=== PATIENT | female | born 1990 | race Caucasian/White ===

== ENCOUNTER 2016-07-27 02:45 | Emergency (ER) | payer BC ==
[2016-07-27 03:06] VITALS: RESP 18
[2016-07-27] MEDS ORDERED: predniSONE 20 MG TAB PO STA (03:20)
[2016-07-27] MEDS ORDERED: ALBUTEROL NEBULIZED 2.5 MG/3 ML INHALATION STA (03:20)
--- NOTE | 2016-07-27 03:24 | ED ---
URI HPI - General Chief Complaint: Upper Respiratory Infection Stated Complaint: Cough/infection Time Seen by Provider: 07/27/16 03:12 Source: patient Mode of arrival: ambulatory Limitations: no limitations - History of Present Illness Initial Comments: This patient is a 25-year-old woman who presents to be evaluated for cough. The patient states that her symptoms started between 3 and 4 weeks ago, with congestion and cough. She states she was seen by her clinic provider, and diagnosed with upper respiratory infection and given a course of medication. She was feeling better for a period of time but then over the past week or so has had worsening of the cough. Tonight she had a cough with a little bit of brownish sputum and she felt she should have this evaluated. The patient states she is also a little bit short of breath. When questioned she states there may be a little bit of wheezing going on. She has no history of asthma. Patient denies fever or chills. She is not really having chest pains other than a little bit of burning with the cough. No leg pain or swelling. MD Complaint: cough Onset/Timin -: week(s) Severity: moderate Quality: burning Consistency: constant Improves With: nothing Worsens With: nothing Associated Symptoms: denies other symptoms - Related Data Previous Rx's Medication Instructions Recorded Albuterol Inhaler [Ventolin Hfa 1 - 2 puff INHALATION Q6HR PRN #1 07/27/16 Inhaler] inhaler predniSONE 60 mg PO DAILY #30 tab 07/27/16 Allergies Allergy/AdvReac Type Severity Reaction Status Date / Time citalopram Allergy Dyspnea Verified 07/27/16 03:06 Review of Systems ROS Statement: Those systems with pertinent positive or pertinent negative responses have been documented in the HPI. ROS Other: All systems not noted in ROS Statement are negative. Constitutional: Denies: fever, chills, weakness ENT: Denies: throat pain, congestion Respiratory: Reports: cough, wheezes. Denies: dyspnea, hemoptysis Cardiovascular: Denies: chest pain, palpitations, edema Gastrointestinal: Denies: abdominal pain, vomiting Skin: Denies: rash Neurological: Denies: headache Past Medical History Past Medical History: No Reported History History of Any Multi-Drug Resistant Organisms: None Reported Past Surgical History: Cholecystectomy Additional Past Surgical History / Comment(s): Ganglion cyst removal; mole removal Past Psychological History: No Psychological Hx Reported Smoking Status: Never smoker Past Alcohol Use History: Occasional Past Drug Use History: None Reported General Exam Limitations: no limitations General appearance: alert, in no apparent distress ENT exam: Present: mucous membranes moist, other (Mild cobblestoning of the pharynx) Neck exam: Present: normal inspection, full ROM, lymphadenopathy. Absent: meningismus Respiratory exam: Present: normal lung sounds bilaterally, wheezes. Absent: respiratory distress, rales, rhonchi, stridor Cardiovascular Exam: Present: regular rate, normal rhythm, normal heart sounds. Absent: systolic murmur, diastolic murmur, rubs, gallop GI/Abdominal exam: Present: soft. Absent: tenderness, guarding, rebound Extremities exam: Present: normal inspection. Absent: pedal edema, calf tenderness Skin exam: Present: warm, dry, intact, normal color. Absent: rash Course Vital Signs 07/27/16 07/27/16 07/27/16 03:03 03:35 03:44 Temperature 97.3 F L Pulse Rate 85 84 84 Respiratory 18 Rate Blood Pressure 117/83 O2 Sat by Pulse 98 Oximetry Disposition Clinical Impression: Bronchitis Disposition: HOME SELF-CARE Condition: Good Instructions: Acute Bronchitis (ED), Bronchospasm (ED), How to Use a Nebulizer (ED) Prescriptions: Albuterol Inhaler [Ventolin Hfa Inhaler] 1 - 2 puff INHALATION Q6HR PRN #1 inhaler PRN Reason: Wheezing predniSONE 60 mg PO DAILY #30 tab Referrals: Christiano Ramirez MD [Primary Care Provider] - 1-2 days
--- NOTE | 2016-07-27 04:37 | XR ---
EXAM: XR Chest, 2 Views. CLINICAL HISTORY: Reason: cough TECHNIQUE: Frontal and lateral views of the chest. COMPARISON: No relevant prior studies available. FINDINGS: Lungs: Unremarkable. No consolidation. Pleural spaces: Unremarkable. No pneumothorax. Heart: Unremarkable. No cardiomegaly. Mediastinum: Unremarkable. Bones: Unremarkable. No acute fracture. IMPRESSION: Normal chest.
[2016-07-27 04:54] VITALS: BP 116/71; PULSE 82; TEMP 96.8
== END 2016-07-27 04:54 | disposition home or self-care (01) ==
LOC: EC 02:45
DX: J40 Bronchitis, not specified as acute or chronic (principal); Z88.8 Allergy status to other drugs, medicaments and biological substances
CPT/HCPCS: 94640; 71020; 99283; J7512

== ENCOUNTER 2017-02-18 16:46 | Outpatient (CLI) | payer BC, OTHER ==
[2017-02-18 17:25] LABS: Glucose,Whole Blood 108 mg/dL (75-99)
[2017-02-18 17:36] VITALS: BP 131/67; PULSE 93; RESP 16; TEMP 98
--- NOTE | 2017-03-23 13:48 | P.MSEPDOC ---
Presenting Problems - Arrival Data Date of Arrival on Unit: 02/18/17 Time of Arrival on Unit: 16:49 Mode of Transport: Wheelchair - Complaint OB-Reason for Admission/Chief Complaint: Decreased Movement Medical History - Information : 1 Para: 0 Term: 0 : 0 Abortions: Spontaneous or Elective: 0 Number of Living Children: 0 - Gestational Age Gestational Age by DAISY (wks/days): 31 Weeks and 1 Days Review of Systems - Review of Systems Constitutional: No problems Breast: No problems ENT: No problems Cardiovascular: No problems Respiratory: No problems Gastrointestinal: No problems Genitourinary: No problems Musculoskeletal: No problems Neurological: Dizziness Skin: No problems Comment: earlier today, not at present time Vital Signs - Temperature Temperature: 98.0 F Temperature Source: Oral - Pulse Left Sitting Brachial Pulse Rate: 93 Pulse Assessment Method: Automatic Cuff - Respirations Respiratory Rate: 16 Oxygen Delivery Method: Room Air - Blood Pressure Left Arm Sitting Blood Pressure: 131/67 Blood Pressure Mean: 88 Blood Pressure Source: Automatic Cuff Medical Screen Scoring (Pre) - Cervical Exam Dilation: Exam Deferred Effacement: Exam Deferred - Uterine Contractions Frequency: N/A Duration: N/A Intensity: N/A - Maternal Vital Signs Maternal Temperature: N/A Maternal Blood Pressure: N/A Signs of Preeclampsia: N/A Maternal Respirations: N/A - Maternal Trauma Maternal Trauma: N/A - Assessment Baseline FHR: 130 Heart Rate - NICHD Category: Category I (Normal) = 0 NST: Reactive Position: N/A Station: N/A - Total Score Total Score (Pre): 0 - Level of Risk Level of Risk: N/A Physician Notification (Pre) - Physician Notified Physician Notified Date: 02/18/17 Physician Notified Time: 17:20 Spoke With: dr gabriel New Order Received: Yes - Notification Comment Comment: obtain fingerstick BG, if normal dc pt home Disposition - Disposition OB Disposition: Discharge to home Discharge Date: 02/18/17 Discharge Time: 17:24 I agree with the RN Medical Screening Exam: Yes Risk & Benefit of care provided described in d/c instruction: Yes Diagnosis: DECREASED MOVEMENTS, THIRD TRIMESTER, FETUS 1
== END 2017-02-18 17:24 | disposition home or self-care (01) ==
LOC: FBPOP 16:46
PROVIDERS: ATTEND Obstetrics & Gynecology
DX: O36.8131 Decreased fetal movements, third trimester, fetus 1 (principal); Z3A.31 31 weeks gestation of pregnancy
CPT/HCPCS: 59025; 99213

== ENCOUNTER 2017-03-01 16:17 | Outpatient (CLI) | payer BC, OTHER ==
[2017-03-01 16:52] LABS: Appearance,Urine Cloudy (Clear); Bacteria,Urine Moderate /hpf; Bilirubin,Urine Negative (Negative); Blood,Urine Negative (Negative); Calcium Oxalate Crystals,Urine Rare /hpf; Color,Urine Yellow; Glucose,Urine (UA) Negative (Negative); Ketones,Urine Negative (Negative); Leukocyte Esterase,Urine Negative (Negative); Mucus,Urine Rare /hpf; Nitrite,Urine Negative (Negative); PH, Urine 7.5 (5.0-8.0); Protein,Urine Negative (Negative); RBC,Urine 1 /hpf (0-5); Specific Gravity,Urine 1.008 (1.001-1.035); Squamous Epithelial Cell,Urine 5 /hpf (0-4); Urobilinogen,Urine <2.0 mg/dL (<2.0); WBC,Urine 2 /hpf (0-5)
[2017-03-01 17:05] VITALS: BP 123/74; PULSE 98; RESP 16; TEMP 98
[2017-03-01] MEDS ORDERED: ACETAMINOPHEN IV (For NPO) 1,000 MG in EMPTY BAG 1 BAG IVPB STA (17:14)
[2017-03-01] MEDS: LACTATED RINGERS 1,000 ML IV SCH ×3 (17:30→18:57)
[2017-03-01 17:41] LABS: Basophils % (A) 0 %; Eosinophils # (A) 0.1 k/uL (0-0.7); Eosinophils % (A) 2 %; HCT 32.4 % (34.0-46.0); HGB 10.8 gm/dL (11.4-16.0); Lymphocytes # (A) 1.3 k/uL (1.0-4.8); Lymphocytes % (A) 13 %; MCH 28.1 pg (25.0-35.0); MCHC 33.2 g/dL (31.0-37.0); MCV 84.6 fL (80.0-100.0); Mean Platelet Volume 6.6; Monocytes # (A) 0.5 k/uL (0-1.0); Monocytes % (A) 6 %; Neutrophils # (A) 7.5 k/uL (1.3-7.7); Neutrophils % (A) 78 %; Platelet Count 250 k/uL (150-450); Poikilocytosis Slight; RBC 3.83 m/uL (3.80-5.40); RDW 14.5 % (11.5-15.5); WBC 9.6 k/uL (3.8-10.6)
[2017-03-01 17:56] LABS: Blood Urea Nitrogen 3 mg/dL (7-17)
--- NOTE | 2017-04-09 10:00 | P.MSEPDOC ---
Presenting Problems - Arrival Data Date of Arrival on Unit: 03/01/17 Time of Arrival on Unit: 16:17 Mode of Transport: Ambulatory - Complaint OB-Reason for Admission/Chief Complaint: Pain Comment: 09/15 abdominal and suprapubic Medical History - Information : 1 Para: 0 Term: 0 : 0 Abortions: Spontaneous or Elective: 0 Number of Living Children: 0 - Gestational Age Gestational Age by DAISY (wks/days): 32 Weeks and 6 Days Review of Systems - Review of Systems Constitutional: No problems Breast: No problems ENT: No problems Cardiovascular: No problems Respiratory: No problems Gastrointestinal: No problems Genitourinary: No problems Musculoskeletal: No problems Neurological: No problems Skin: No problems Vital Signs - Temperature Temperature: 98 F Temperature Source: Temporal Artery Scan - Pulse Right Pulse Rate: 98 Pulse Assessment Method: Automatic Cuff - Respirations Respiratory Rate: 16 Oxygen Delivery Method: Room Air O2 Sat by Pulse Oximetry: 98 - Blood Pressure Right Arm Blood Pressure: 123/74 Blood Pressure Mean: 90 Blood Pressure Source: Automatic Cuff Medical Screen Scoring (Pre) - Cervical Exam Dilation: Exam Deferred Effacement: Exam Deferred Membranes: Intact - Uterine Contractions Frequency: N/A Duration: N/A Intensity: N/A - Maternal Vital Signs Maternal Temperature: N/A Signs of Preeclampsia: N/A Maternal Respirations: N/A - Pain Assessment Pain Location and Character: Lower, Abdomen Pain Scale Used: Numeric (1 - 10) Pain Intensity: 7 Pain Description: *Acute, Cramping Pain Radiation Location: left side, suprapubic Pain Frequency: Constant Pain Duration: 1 Pain Duration Units: Days Pain Behavior: Facial Grimacing Pain Aggravating Factors: Activity - Maternal Trauma Maternal Trauma: N/A - Assessment Baseline FHR: 125 Heart Rate - NICHD Category: Category I (Normal) = 0 NST: Reactive Position: N/A Station: N/A - Total Score Total Score (Pre): 0 - Level of Risk Level of Risk: Low (0-5) Medical Screen Scoring (Post) - Pain Assessment Pain Location and Character: Abdomen Pain Scale Used: Numeric (1 - 10) Pain Intensity: 1 Physician Notification (Post) - Physician Notified Physician Notified Date: 03/01/17 Physician Notified Time: 18:24 Spoke With: Kevin New Order Received: Yes (discharge with instruction) - Notification Comment Comment: labs were wnl, ffn negative, cervix closed and thick. Disposition - Disposition OB Disposition: Discharge to home Discharge Date: 03/01/17 Discharge Time: 18:42 I agree with the RN Medical Screening Exam: Yes Risk & Benefit of care provided described in d/c instruction: Yes Diagnosis: FALSE LABOR BEFORE 37 COMPLETED WEEKS OF GEST, THIRD TRI
== END 2017-03-01 18:48 | disposition home or self-care (01) ==
LOC: FBPOP 16:17
PROVIDERS: ATTEND Obstetrics & Gynecology Obstetrics
DX: O47.03 False labor before 37 completed weeks of gestation, third trimester (principal); Z3A.32 32 weeks gestation of pregnancy
CPT/HCPCS: 59025; 96360; 82731; 82565; 84520; 85025; 81001; G0463; J0131; 96365; 99214

== ENCOUNTER 2017-03-22 06:20 | Outpatient (CLI) | payer OTHER ==
[2017-03-22 06:59] LABS: Appearance,Urine Cloudy (Clear); Bacteria,Urine Moderate /hpf; Bilirubin,Urine Negative (Negative); Blood,Urine Negative (Negative); Color,Urine Light Yellow; Glucose,Urine (UA) Negative (Negative); Ketones,Urine Negative (Negative); Leukocyte Esterase,Urine Negative (Negative); Mucus,Urine Rare /hpf; Nitrite,Urine Negative (Negative); PH, Urine 6.5 (5.0-8.0); Protein,Urine Negative (Negative); Specific Gravity,Urine 1.003 (1.001-1.035); Squamous Epithelial Cell,Urine 4 /hpf (0-4); Urobilinogen,Urine <2.0 mg/dL (<2.0); WBC,Urine 1 /hpf (0-5)
[2017-03-22 07:27] VITALS: BP 128/79; PULSE 88; RESP 16; TEMP 96.9
--- NOTE | 2017-03-25 14:01 | P.MSEPDOC ---
Presenting Problems - Arrival Data Date of Arrival on Unit: 03/22/17 Time of Arrival on Unit: 06:20 Mode of Transport: Wheelchair - Complaint OB-Reason for Admission/Chief Complaint: Pain Comment: Pt states she has abdominal pain in lower abdomen and right side of abdomen rating it a 5/10 on pain scale. Medical History - Information : 1 Para: 0 Term: 0 : 0 Abortions: Spontaneous or Elective: 0 Number of Living Children: 0 - Gestational Age Gestational Age by DAISY (wks/days): 35 Weeks and 4 Days Review of Systems - Review of Systems Constitutional: No problems Breast: No problems ENT: No problems Cardiovascular: No problems Respiratory: No problems Gastrointestinal: No problems Genitourinary: Increased frequency Musculoskeletal: No problems Neurological: No problems Skin: No problems Vital Signs - Temperature Temperature: 96.9 F Temperature Source: Tympanic - Pulse Pulse Oximetery Pulse Rate: 88 Pulse Assessment Method: Pulse Oximetry - Respirations Respiratory Rate: 16 Oxygen Delivery Method: Room Air O2 Sat by Pulse Oximetry: 100 - Blood Pressure Right Arm Blood Pressure: 128/79 Blood Pressure Mean: 95 Blood Pressure Source: Automatic Cuff Medical Screen Scoring (Pre) - Cervical Exam Dilation: Exam Deferred Effacement: Exam Deferred Membranes: Intact - Uterine Contractions Frequency: N/A Duration: N/A Intensity: N/A - Maternal Vital Signs Maternal Temperature: N/A Maternal Blood Pressure: N/A Signs of Preeclampsia: N/A Maternal Respirations: N/A - Pain Assessment Pain Location and Character: Right, Lower, Abdomen Pain Scale Used: Numeric (1 - 10) Pain Intensity: 5 Pain Management Goal: 2 Pain Description: *Acute, Cramping Pain Radiation Location: none Pain Frequency: Intermittent Pain Behavior: None Exhibited Pain Aggravating Factors: None Non-Pharmacological Interventions: Distraction - Maternal Trauma Maternal Trauma: N/A - Assessment Baseline FHR: 135 Heart Rate - NICHD Category: Category I (Normal) = 0 NST: Reactive Position: N/A Station: N/A - Total Score Total Score (Pre): 0 - Level of Risk Level of Risk: Low (0-5) Physician Notification (Pre) - Physician Notified Physician Notified Date: 03/22/17 Physician Notified Time: 07:08 Physician/Practitioner Notifed:: Dr. Brown Spoke With: Dr. Brown New Order Received: Yes - Notification Comment Comment: Dr. Brown notified of pts UA results. Dr. Brown wrote prescription for macrobid for pt. Orders for discharge given. Disposition - Disposition OB Disposition: Discharge to home Discharge Date: 03/22/17 Discharge Time: 07:20 I agree with the RN Medical Screening Exam: Yes Risk & Benefit of care provided described in d/c instruction: Yes Diagnosis: URINARY TRACT INFECTION, SITE NOT SPECIFIED
== END 2017-03-22 07:20 | disposition home or self-care (01) ==
LOC: FBPOP 06:20
PROVIDERS: ATTEND Obstetrics & Gynecology Obstetrics
DX: O23.43 Unspecified infection of urinary tract in pregnancy, third trimester (principal); Z3A.35 35 weeks gestation of pregnancy
CPT/HCPCS: 59025; 81001; G0463; 99213

== ENCOUNTER 2017-03-30 20:13 | Outpatient (CLI) | payer OTHER ==
[2017-03-30 20:37] VITALS: BP 135/75; PULSE 94; RESP 16; TEMP 97.4
--- NOTE | 2017-04-24 10:44 | P.MSEPDOC ---
Presenting Problems - Arrival Data Date of Arrival on Unit: 03/30/17 Time of Arrival on Unit: 20:13 Mode of Transport: Wheelchair - Complaint OB-Reason for Admission/Chief Complaint: Observation/Evaluation Comment: Pt states pelvic pressure and dampness Medical History - Information : 1 Para: 0 Term: 0 : 0 Abortions: Spontaneous or Elective: 0 Number of Living Children: 0 - Gestational Age Gestational Age by DAISY (wks/days): 36 Weeks and 5 Days Review of Systems - Review of Systems Constitutional: No problems Breast: No problems ENT: No problems Cardiovascular: No problems Respiratory: No problems Gastrointestinal: No problems Genitourinary: No problems Musculoskeletal: No problems Neurological: No problems Skin: No problems Vital Signs - Temperature Temperature: 97.4 F Temperature Source: Temporal Artery Scan - Pulse Right Brachial Pulse Rate: 94 Pulse Assessment Method: Automatic Cuff - Respirations Respiratory Rate: 16 Oxygen Delivery Method: Room Air - Blood Pressure Right Arm Blood Pressure: 135/75 Blood Pressure Mean: 95 Blood Pressure Source: Automatic Cuff Medical Screen Scoring (Pre) - Cervical Exam Dilation: 0 cm = 0 Membranes: Intact - Uterine Contractions Frequency: N/A Duration: N/A Intensity: N/A - Assessment NST: Reactive - Total Score Total Score (Pre): 0 - Level of Risk Level of Risk: Low (0-5) Physician Notification (Pre) - Physician Notified Physician Notified Date: 03/30/17 Physician Notified Time: 20:08 Physician/Practitioner Notifed:: ho Spoke With: goran New Order Received: Yes - Notification Comment Comment: d/c home at this time to follow up as scheduled 04/02/17 Disposition - Disposition Discharge Date: 03/30/17 Discharge Time: 21:10 I agree with the RN Medical Screening Exam: Yes Risk & Benefit of care provided described in d/c instruction: Yes Diagnosis: FALSE LABOR BEFORE 37 COMPLETED WEEKS OF GEST, THIRD TRI
== END 2017-03-30 21:10 | disposition home or self-care (01) ==
LOC: FBPOP 20:13
PROVIDERS: ATTEND Obstetrics & Gynecology
DX: O47.03 False labor before 37 completed weeks of gestation, third trimester (principal); Z3A.36 36 weeks gestation of pregnancy
CPT/HCPCS: 59025; 84112; G0463; 99213

== ENCOUNTER 2017-04-02 21:58 | Outpatient (CLI) | payer OTHER ==
[2017-04-02] MEDS ORDERED: Acetaminophen-Codeine 300-30mg TAB PO STA (22:37)
[2017-04-02 22:43] VITALS: BP 128/68; PULSE 89; RESP 20; TEMP 97.2
--- NOTE | 2017-05-08 08:27 | P.MSEPDOC ---
Presenting Problems - Arrival Data Date of Arrival on Unit: 04/02/17 Time of Arrival on Unit: 21:58 Mode of Transport: Wheelchair - Complaint OB-Reason for Admission/Chief Complaint: Acute Nausea/Vomiting, Headache, Visual Disturbances Medical History - Information : 1 Para: 0 Term: 0 : 0 Abortions: Spontaneous or Elective: 0 Number of Living Children: 0 - Gestational Age Gestational Age by DAISY (wks/days): 37 Weeks and 1 Days Review of Systems - Review of Systems Constitutional: No problems Breast: No problems ENT: No problems Cardiovascular: No problems Respiratory: No problems Gastrointestinal: No problems Genitourinary: No problems Musculoskeletal: No problems Neurological: No problems Skin: No problems Vital Signs - Temperature Temperature: 97.2 F Temperature Source: Oral - Pulse Right Sitting Brachial Pulse Rate: 89 Pulse Assessment Method: Automatic Cuff - Respirations Respiratory Rate: 20 Oxygen Delivery Method: Room Air O2 Sat by Pulse Oximetry: 97 - Blood Pressure Right Arm Sitting Blood Pressure: 128/68 Blood Pressure Mean: 88 Blood Pressure Source: Automatic Cuff Medical Screen Scoring (Pre) - Cervical Exam Dilation: Exam Deferred Effacement: Exam Deferred Membranes: Intact - Uterine Contractions Frequency: N/A Duration: N/A Intensity: N/A - Maternal Vital Signs Maternal Temperature: N/A Maternal Blood Pressure: N/A Maternal Respirations: N/A - Pain Assessment Pain Location and Character: Head Pain Scale Used: Numeric (1 - 10) Pain Intensity: 7 Pain Management Goal: 3 Pain Description: *Acute, Aching Pain Radiation Location: n/a Pain Frequency: Constant Pain Duration: 2 Pain Duration Units: Hours Pain Behavior: Facial Grimacing, Vocalization - Assessment Baseline FHR: 125 Heart Rate - NICHD Category: Category I (Normal) = 0 NST: Reactive Position: N/A Station: N/A - Total Score Total Score (Pre): 0 - Level of Risk Level of Risk: Low (0-5) Physician Notification (Pre) - Physician Notified Physician Notified Date: 04/02/17 Physician Notified Time: 22:34 Physician/Practitioner Notifed:: dr gabriel Spoke With: dr gabriel New Order Received: Yes - Notification Comment Comment: give pt two tylenol 3s. keep pt in TR 45 mins post tyenol to reassess pain. If migraine pain decreases, discharge home. If not, discharge to ER to be seen. Disposition - Disposition OB Disposition: Discharge to home, Written follow up instructions reviewed Discharge Date: 04/02/17 Discharge Time: 23:30 I agree with the RN Medical Screening Exam: Yes Risk & Benefit of care provided described in d/c instruction: Yes Diagnosis: HEADACHE
== END 2017-04-02 23:30 | disposition home or self-care (01) ==
LOC: FBPOP 21:58
PROVIDERS: ATTEND Obstetrics & Gynecology
DX: O99.89 Other specified diseases and conditions complicating pregnancy, childbirth and the puerperium (principal); R51 Headache; H53.9 Unspecified visual disturbance; Z3A.37 37 weeks gestation of pregnancy
CPT/HCPCS: 59025; G0463; 99213

== ENCOUNTER 2017-04-05 23:15 | Outpatient (CLI) | payer OTHER ==
[2017-04-05 23:56] VITALS: BP 130/76; PULSE 82; RESP 16; TEMP 96.6
--- NOTE | 2017-04-24 10:47 | P.MSEPDOC ---
Presenting Problems - Arrival Data Date of Arrival on Unit: 04/05/17 Time of Arrival on Unit: 23:15 Mode of Transport: Ambulatory - Complaint OB-Reason for Admission/Chief Complaint: Other Comment: C/o of contractions and pressure that started at 1945 but have since subsided around 2100 Medical History - Information : 1 Para: 0 Term: 0 : 0 Abortions: Spontaneous or Elective: 0 Number of Living Children: 0 - Gestational Age Gestational Age by DAISY (wks/days): 37 Weeks and 5 Days Review of Systems - Review of Systems Constitutional: No problems Breast: No problems ENT: No problems Cardiovascular: No problems Respiratory: No problems Gastrointestinal: No problems Genitourinary: No problems Musculoskeletal: No problems Neurological: No problems Skin: No problems Vital Signs - Temperature Temperature: 96.6 F Temperature Source: Temporal Artery Scan - Pulse Right Brachial Pulse Rate: 82 Pulse Assessment Method: Automatic Cuff - Respirations Respiratory Rate: 16 Oxygen Delivery Method: Room Air O2 Sat by Pulse Oximetry: 99 - Blood Pressure Right Arm Blood Pressure: 130/76 Blood Pressure Mean: 94 Blood Pressure Source: Automatic Cuff Medical Screen Scoring (Pre) - Cervical Exam Dilation: 0 cm = 0 Membranes: Intact - Uterine Contractions Frequency: > or = 36 weeks =2 Duration: N/A Intensity: N/A - Maternal Vital Signs Maternal Temperature: N/A Maternal Blood Pressure: N/A Signs of Preeclampsia: N/A Maternal Respirations: N/A - Pain Assessment Pain Location and Character: Abdomen Pain Scale Used: Numeric (1 - 10) Pain Intensity: 1 Pain Description: Cramping Pain Frequency: Intermittent Pain Duration: 15 Pain Duration Units: Minutes Pain Behavior: None Exhibited Pain Aggravating Factors: Contractions Non-Pharmacological Interventions: Distraction - Total Score Total Score (Pre): 2 - Level of Risk Level of Risk: Low (0-5) Physician Notification (Pre) - Physician Notified Physician Notified Date: 04/05/17 Physician Notified Time: 23:43 Physician/Practitioner Notifed:: Dr. Cee Spoke With: Dr. Cee New Order Received: Yes - Notification Comment Comment: Dr. Cee called and given report on pt in triage. Pt c/o of contractions and pressure that started at 1945 but having subsided after being d /c from [facility] at 2100. Vag exam of fingertip/thick/high. reactive nst. Orders recieved to monitor pt for the next hour and if no change in status d/c pt to home. Disposition - Disposition OB Disposition: Discharge to home Discharge Date: 04/06/17 Discharge Time: 00:30 I agree with the RN Medical Screening Exam: Yes Risk & Benefit of care provided described in d/c instruction: Yes Diagnosis: FALSE LABOR AT OR AFTER 37 COMPLETED WEEKS OF GESTATION
== END 2017-04-06 00:30 | disposition home or self-care (01) ==
LOC: FBPOP 23:15
PROVIDERS: ATTEND Obstetrics & Gynecology
DX: O47.03 False labor before 37 completed weeks of gestation, third trimester (principal); Z3A.37 37 weeks gestation of pregnancy
CPT/HCPCS: 59025; G0463; 99213

== ENCOUNTER 2017-04-09 22:52 | Outpatient (CLI) | payer OTHER ==
[2017-04-10 01:02] VITALS: BP 127/84; PULSE 73; RESP 18; TEMP 97.4
--- NOTE | 2017-04-24 10:49 | P.MSEPDOC ---
Presenting Problems - Arrival Data Date of Arrival on Unit: 04/09/17 Time of Arrival on Unit: 22:52 Mode of Transport: Wheelchair - Complaint OB-Reason for Admission/Chief Complaint: Possible Onset of Labor, Rule Out SROM Medical History - Information : 1 Para: 0 Term: 0 : 0 Abortions: Spontaneous or Elective: 0 Number of Living Children: 0 - Gestational Age Gestational Age by DAISY (wks/days): 38 Weeks and 2 Days Review of Systems - Review of Systems Constitutional: No problems Breast: No problems ENT: No problems Cardiovascular: No problems Respiratory: No problems Gastrointestinal: No problems Genitourinary: No problems Musculoskeletal: No problems Neurological: No problems Skin: No problems Vital Signs - Temperature Temperature: 97.4 F Temperature Source: Temporal Artery Scan - Pulse Right Brachial Pulse Rate: 73 Pulse Assessment Method: Automatic Cuff - Respirations Respiratory Rate: 18 Oxygen Delivery Method: Room Air - Blood Pressure Right Arm Blood Pressure: 127/84 Blood Pressure Mean: 98 Blood Pressure Source: Automatic Cuff Medical Screen Scoring (Pre) - Cervical Exam Dilation: 1-3 cm = 1 Membranes: Intact - Uterine Contractions Frequency: > 5 minutes apart = 1 Duration: > 40 seconds = 2 Intensity: N/A - Maternal Vital Signs Maternal Temperature: N/A Maternal Blood Pressure: N/A Signs of Preeclampsia: N/A Maternal Respirations: N/A - Pain Assessment Pain Location and Character: Back, Abdomen Pain Scale Used: Numeric (1 - 10) Pain Intensity: 9 Pain Management Goal: 2 Pain Description: *Acute, Cramping, Pressure Pain Frequency: Intermittent Pain Behavior: Vocalization - Maternal Trauma Maternal Trauma: N/A - Assessment Baseline FHR: 115 Heart Rate - NICHD Category: Category I (Normal) = 0 NST: Reactive Position: N/A Station: N/A - Total Score Total Score (Pre): 4 - Level of Risk Level of Risk: Low (0-5) Physician Notification (Pre) - Physician Notified Physician Notified Date: 04/10/17 Physician Notified Time: 00:35 Physician/Practitioner Notifed:: Dr. Cee Spoke With: Dr. Cee New Order Received: Yes - Notification Comment Comment: discharge pt home Disposition - Disposition OB Disposition: Discharge to home, Written follow up instructions reviewed Discharge Date: 04/10/17 Discharge Time: 00:45 I agree with the RN Medical Screening Exam: Yes Risk & Benefit of care provided described in d/c instruction: Yes Diagnosis: FALSE LABOR AT OR AFTER 37 COMPLETED WEEKS OF GESTATION
== END 2017-04-10 00:45 | disposition home or self-care (01) ==
LOC: FBPOP 22:52
PROVIDERS: ATTEND Obstetrics & Gynecology
DX: O47.03 False labor before 37 completed weeks of gestation, third trimester (principal); Z3A.38 38 weeks gestation of pregnancy
CPT/HCPCS: 59025; G0463; 99213

== ENCOUNTER 2017-04-13 20:20 | Outpatient (CLI) | payer OTHER ==
[2017-04-13 22:56] VITALS: BP 129/81; PULSE 94; RESP 16; TEMP 97.2
--- NOTE | 2017-05-22 10:17 | P.MSEPDOC ---
Presenting Problems - Arrival Data Date of Arrival on Unit: 04/13/17 Time of Arrival on Unit: 20:20 Mode of Transport: Ambulatory - Complaint OB-Reason for Admission/Chief Complaint: Pain Comment: Cramping and back aches. Medical History - Information : 1 Para: 0 Term: 0 : 0 Abortions: Spontaneous or Elective: 0 Number of Living Children: 0 - Gestational Age Gestational Age by DAISY (wks/days): 38 Weeks and 5 Days Review of Systems - Review of Systems Constitutional: No problems Breast: No problems ENT: No problems Cardiovascular: No problems Respiratory: No problems Gastrointestinal: No problems Genitourinary: No problems Musculoskeletal: No problems Neurological: No problems Skin: No problems Vital Signs - Temperature Temperature: 97.2 F Temperature Source: Temporal Artery Scan - Pulse Right Pulse Rate: 94 Pulse Assessment Method: Pulse Oximetry - Respirations Respiratory Rate: 16 Oxygen Delivery Method: Room Air - Blood Pressure Right Arm Blood Pressure: 129/81 Blood Pressure Mean: 97 Blood Pressure Source: Automatic Cuff Medical Screen Scoring (Pre) - Cervical Exam Dilation: 0 cm = 0 Effacement: Exam Deferred Membranes: Intact - Uterine Contractions Frequency: N/A Duration: N/A Intensity: N/A - Maternal Vital Signs Maternal Temperature: N/A Maternal Blood Pressure: N/A Signs of Preeclampsia: N/A Maternal Respirations: N/A - Pain Assessment Pain Location and Character: Back, Abdomen Pain Scale Used: Numeric (1 - 10) Pain Intensity: 6 Pain Management Goal: 0 Pain Description: Aching, Cramping Pain Frequency: Intermittent Pain Duration Units: Minutes Pain Behavior: Vocalization Pain Aggravating Factors: Activity Non-Pharmacological Interventions: Distraction, Inactivity, Position/Reposition , Relaxation Technique - Assessment Baseline FHR: 130 Heart Rate - NICHD Category: Category I (Normal) = 0 NST: Reactive Position: N/A Station: N/A - Total Score Total Score (Pre): 0 - Level of Risk Level of Risk: Low (0-5) Physician Notification (Pre) - Physician Notified Physician Notified Date: 04/13/17 Physician Notified Time: 20:40 Physician/Practitioner Notifed:: Dr. Brown Spoke With: Dr. Brown New Order Received: Yes (discharge and return to ER for Flu evaluation) Medical Screen Scoring (Post) - Cervical Exam Dilation: Exam Deferred Effacement: Exam Deferred Membranes: Intact - Uterine Contractions Frequency: N/A Duration: N/A - Maternal Vital Signs Maternal Temperature: N/A Maternal Blood Pressure: N/A Signs of Preeclampsia: N/A Maternal Respirations: N/A - Pain Assessment Pain Location and Character: Back, Abdomen Pain Scale Used: Numeric (1 - 10) Pain Intensity: 6 Pain Management Goal: 0 Pain Description: *Acute, Aching, Cramping Pain Frequency: Intermittent Pain Duration Units: Minutes Pain Behavior: Vocalization Pain Aggravating Factors: Activity Non-Pharmacological Interventions: Distraction, Inactivity, Relaxation Technique - Maternal Trauma Maternal Trauma: N/A - Assessment Heart Rate: 130 Heart Rate - NICHD Category: Category I (Normal) = 0 NST: Reactive Position: N/A Station: N/A - Total Score Total Score (Post): 0 - Post Treatment Level of Risk Post Treatment Level of Risk: Low (0-5) Physician Notification (Post) - Physician Notified Physician Notified Date: 04/13/17 Physician Notified Time: 20:40 Physician/Practitioner Notified:: Dr. Brown Spoke With: Dr. Brown New Order Received: Yes (discharge and return to ER for Flu evaluation) Disposition - Disposition OB Disposition: Discharge to home Discharge Date: 04/13/17 Discharge Time: 20:40 I agree with the RN Medical Screening Exam: Yes Risk & Benefit of care provided described in d/c instruction: Yes Diagnosis: FALSE LABOR, UNSPECIFIED
== END 2017-04-13 20:40 | disposition home or self-care (01) ==
LOC: FBPOP 20:20
PROVIDERS: ATTEND Obstetrics & Gynecology Obstetrics
DX: O47.1 False labor at or after 37 completed weeks of gestation (principal); Z3A.38 38 weeks gestation of pregnancy
CPT/HCPCS: 59025; G0463; 99203; 99213

== ENCOUNTER 2017-04-13 20:56 | Emergency (ER) | payer OTHER ==
--- NOTE | 2017-04-13 22:28 | ED ---
Nausea/Vomiting/Diarrhea HPI - General Chief complaint: Nausea/Vomiting/Diarrhea Stated complaint: needs flu swab Time Seen by Provider: 04/13/17 21:50 Source: patient, family Mode of arrival: ambulatory Limitations: no limitations - History of Present Illness Initial comments: This patient is 26-year-old woman who states she is approximately 38 weeks , and was advised to be checked in the emergency department today for possibility of flu. She states that she was in her usual state of health until last night when she started having very loose bowel movements. Over the course the past 24 hours she estimates that she has had maybe 10 bowel movements, without seeing any blood or tarry stools. In addition she had an episode of vomiting this evening. After she vomited she phoned her silver lap machine tender Dr. Brown who recommended that she be seen here and have a flu swab. Patient is denying abdominal pain. She has not had fever or chills. No change in urination area she has not had any vaginal bleeding or discharge. She states she continues to feel normal movements. MD complaint: vomiting, diarrhea Onset/Timin -: days(s) Description of Vomiting: food contents Description of Diarrhea: water Associated Abdominal Pain: No Consistency: constant Improves with: none Worsens with: none Associated Symptoms: denies other symptoms - Related Data Home Medications Medication Instructions Recorded Confirmed Pnv,Calcium 72/Iron/Folic Acid 1 tab PO DAILY 01/07/17 04/13/17 [ Plus Tablet] Allergies Allergy/AdvReac Type Severity Reaction Status Date / Time citalopram Allergy Dyspnea Verified 04/13/17 22:14 Review of Systems ROS Statement: Those systems with pertinent positive or pertinent negative responses have been documented in the HPI. ROS Other: All systems not noted in ROS Statement are negative. Constitutional: Denies: fever, chills, weakness Respiratory: Denies: cough, dyspnea Cardiovascular: Denies: chest pain, palpitations, edema Gastrointestinal: Reports: nausea, vomiting, diarrhea. Denies: abdominal pain, hematemesis, melena, hematochezia Genitourinary: Denies: dysuria, hematuria, discharge, abnormal menses Musculoskeletal: Denies: back pain Skin: Denies: rash Neurological: Denies: headache, weakness, numbness Past Medical History Past Medical History: No Reported History History of Any Multi-Drug Resistant Organisms: None Reported Past Surgical History: Cholecystectomy Additional Past Surgical History / Comment(s): Ganglion cyst removal; mole removal Past Psychological History: No Psychological Hx Reported Smoking Status: Never smoker General Exam Limitations: no limitations General appearance: alert, in no apparent distress Head exam: Present: atraumatic, normocephalic Eye exam: Present: normal appearance. Absent: scleral icterus, conjunctival injection Neck exam: Present: normal inspection, full ROM Respiratory exam: Present: normal lung sounds bilaterally. Absent: respiratory distress, wheezes, rales, rhonchi, stridor Cardiovascular Exam: Present: regular rate, normal rhythm, normal heart sounds. Absent: systolic murmur, diastolic murmur, rubs, gallop GI/Abdominal exam: Present: soft, normal bowel sounds, mass (Gravid uterus with palpable movements). Absent: distended, tenderness (No right upper quadrant tenderness), guarding, rebound, rigid, pulsatile mass, hernia Extremities exam: Present: normal inspection, normal capillary refill. Absent: pedal edema, calf tenderness Back exam: Present: normal inspection. Absent: CVA tenderness (R), CVA tenderness (L) Neurological exam: Present: alert Skin exam: Present: warm, dry, intact, normal color. Absent: rash Course Vital Signs 04/13/17 20:59 Temperature 98.4 F Pulse Rate 100 Respiratory 20 Rate Blood Pressure 139/80 O2 Sat by Pulse 97 Oximetry Medical Decision Making - Lab Data Lab Results 04/13/17 Range/Units 22:45 Influenza Type A RNA Not Detected (Not Detectd) Influenza Type B (PCR) Not Detected (Not Detectd) Disposition Clinical Impression: Diarrhea Disposition: HOME SELF-CARE Condition: Good Instructions: Acute Diarrhea (ED) Referrals: Christiano Ramirez MD [Primary Care Provider] - 1-2 days
[2017-04-13 23:22] VITALS: BP 126/78; PULSE 92; RESP 18; TEMP 98.3
== END 2017-04-13 23:25 | disposition home or self-care (01) ==
LOC: EC 20:56
DX: O26.893 Other specified pregnancy related conditions, third trimester (principal); R19.7 Diarrhea, unspecified; O21.9 Vomiting of pregnancy, unspecified; Z79.899 Other long term (current) drug therapy; Z88.8 Allergy status to other drugs, medicaments and biological substances; Z3A.38 38 weeks gestation of pregnancy
CPT/HCPCS: 59025; 87502; 99203; 99213; 99284

== ENCOUNTER 2017-04-26 20:18 | Outpatient (CLI) | payer OTHER ==
[2017-04-26 21:10] VITALS: BP 130/76; PULSE 81; RESP 16; TEMP 96.9
--- NOTE | 2017-05-08 08:35 | P.MSEPDOC ---
Presenting Problems - Arrival Data Date of Arrival on Unit: 04/26/17 Time of Arrival on Unit: 20:18 Mode of Transport: Ambulatory - Complaint OB-Reason for Admission/Chief Complaint: Rule Out SROM Medical History - Information : 1 Para: 0 Term: 0 : 0 Abortions: Spontaneous or Elective: 0 Number of Living Children: 0 - Gestational Age Gestational Age by DAISY (wks/days): 40 Weeks and 4 Days Review of Systems - Review of Systems Constitutional: No problems Breast: No problems ENT: No problems Cardiovascular: No problems Respiratory: No problems Gastrointestinal: No problems Genitourinary: No problems Musculoskeletal: No problems Neurological: No problems Skin: No problems Vital Signs - Temperature Temperature: 96.9 F Temperature Source: Temporal Artery Scan - Pulse Right Brachial Pulse Rate: 81 Pulse Assessment Method: Automatic Cuff - Respirations Respiratory Rate: 16 Oxygen Delivery Method: Room Air O2 Sat by Pulse Oximetry: 99 - Blood Pressure Right Arm Blood Pressure: 130/76 Blood Pressure Mean: 94 Blood Pressure Source: Automatic Cuff Medical Screen Scoring (Pre) - Cervical Exam Dilation: 1-3 cm = 1 Membranes: Intact - Uterine Contractions Frequency: > 5 minutes apart = 1 Duration: N/A Intensity: N/A - Maternal Vital Signs Maternal Temperature: N/A Maternal Blood Pressure: N/A Signs of Preeclampsia: N/A Maternal Respirations: N/A - Pain Assessment Pain Location and Character: Abdomen Pain Scale Used: Numeric (1 - 10) Pain Intensity: 7 Pain Description: Cramping Pain Frequency: Intermittent Pain Duration: 1 Pain Duration Units: Minutes Pain Behavior: Facial Grimacing - Assessment Baseline FHR: 130 Heart Rate - NICHD Category: Category I (Normal) = 0 NST: Reactive Position: N/A Station: N/A - Total Score Total Score (Pre): 2 - Level of Risk Level of Risk: Low (0-5) Physician Notification (Pre) - Physician Notified Physician Notified Date: 04/26/17 Physician Notified Time: 20:54 Physician/Practitioner Notifed:: Dr. Hewitt Spoke With: Dr. Hewitt New Order Received: Yes - Notification Comment Comment: Dr. Hewitt called and given report on pt in triage. c/o of water breaking at. 1845 and contractions. Negative amnisure, reactive nst, irregular contractions. Pt a. scheduled induction for Dr. Brown on 04/28. Orders received to recheck pt after 1 hour. from initial check and if made change to call back otherwise d/c pt to home. Physician Notification (Post) - Notification Comment Comment: Duane Barkley agrees with MSE Disposition - Disposition OB Disposition: Discharge to home, Written follow up instructions reviewed Discharge Date: 04/26/17 Discharge Time: 21:20 I agree with the RN Medical Screening Exam: Yes Risk & Benefit of care provided described in d/c instruction: Yes Diagnosis: FALSE LABOR AT OR AFTER 37 COMPLETED WEEKS OF GESTATION
== END 2017-04-26 21:20 | disposition home or self-care (01) ==
LOC: FBPOP 20:18
PROVIDERS: ATTEND Obstetrics & Gynecology
DX: O47.1 False labor at or after 37 completed weeks of gestation (principal); Z3A.40 40 weeks gestation of pregnancy
CPT/HCPCS: 59025; 84112; G0463; 99213

== ENCOUNTER 2018-10-15 09:09 | Day surgery (SDC) | payer BC, OTHER ==
[2018-10-06 16:25] VITALS: BMI 31.6
[~2018-10-15 09:09] MED LIST: DEXAMETHASONE SOD PHOSPHATE 10 MG/ML 1 ML VIAL IV ONE; HEPARIN SODIUM,PORCINE 5,000 UNIT/ML 1 ML VIAL SQ ONE; LACTATED RINGERS 1,000 ML IV SCH; MIDAZOLAM 2 MG/2 ML VIAL IV PRN; ONDANSETRON 4 MG/2 ML VIAL IVP ONE; SCOPOLAMINE 1.5MG/72HR PATCH TRANSDERM ONE
[2018-10-15 09:43] VITALS: TEMP 97
[2018-10-15] MEDS ORDERED: LIDOCAINE 1% 20 ML VIAL (10MG/ML) FOR IV START INTRADERMA ONE (09:45)
[2018-10-15 09:54] LABS: Basophils % (A) 0 %; Eosinophils # (A) 0.1 k/uL (0-0.7); Eosinophils % (A) 2 %; HCT 44.8 % (34.0-46.0); Lymphocytes # (A) 1.5 k/uL (1.0-4.8); Lymphocytes % (A) 25 %; MCH 28.5 pg (25.0-35.0); MCHC 33.5 g/dL (31.0-37.0); MCV 85.1 fL (80.0-100.0); Mean Platelet Volume 6.6; Monocytes # (A) 0.4 k/uL (0-1.0); Monocytes % (A) 6 %; Neutrophils # (A) 4.1 k/uL (1.3-7.7); Neutrophils % (A) 65 %; Platelet Count 292 k/uL (150-450); RBC 5.27 m/uL (3.80-5.40); RDW 15.7 % (11.5-15.5); WBC 6.3 k/uL (3.8-10.6)
[2018-10-15 10:04] LABS: ALT 74 U/L (9-52); AST 77 U/L (14-36); African American GFR (CKD) >90 (>60 ml/min/1.73 sqM); Albumin 4.5 g/dL (3.5-5.0); Alkaline Phosphatase 99 U/L (38-126); Anion Gap 11 mmol/L; Blood Urea Nitrogen 8 mg/dL (7-17); Calcium 9.2 mg/dL (8.4-10.2); Carbon Dioxide 21 mmol/L (22-30); Chloride 111 mmol/L (98-107); Glucose 104 mg/dL (74-99); Non-African American GFR(CKD) >90 (>60 ml/min/1.73 sqM); Potassium 4.3 mmol/L (3.5-5.1); Sodium 143 mmol/L (137-145); Total Bilirubin 0.5 mg/dL (0.2-1.3); Total Protein 7.3 g/dL (6.3-8.2)
--- NOTE | 2018-10-15 11:01 | P.GSHP ---
History of Present Illness H&P Date: 10/15/18 CHIEF COMPLAINT: Ventral hernia. HISTORY OF PRESENT ILLNESS: The patient is a 28-year-old female who presents with a history of swelling along the upper abdomen. Findings were consistent with possible ventral hernia. Now she presents for further evaluation and management. PAST MEDICAL HISTORY: Please see list. PAST SURGICAL HISTORY: Please see list. MEDICATIONS: Please see list. ALLERGIES: Please see list. SOCIAL HISTORY: No illicit drug use FAMILY HISTORY: No reports of Crohn disease or ulcerative colitis. REVIEW OF ORGAN SYSTEMS: CONSTITUTIONAL: No reports of fevers or chills. GI: Denies any blood in stools or constipation. PHYSICAL EXAM: VITAL SIGNS: Stable GENERAL: Well-developed pleasant female in no acute distress. HEENT: No scleral icterus. Extraocular movements grossly intact. Moist buccal mucosa. NECK: Supple without lymphadenopathy. CHEST: Unlabored respirations. Equal bilateral excursions. CARDIOVASCULAR: Regular rate and rhythm. Distal 2+ pulses. ABDOMEN: Soft, nondistended. Tender along the epigastrium/upper abdomen. Protuberant. MUSCULOSKELETAL: No clubbing, cyanosis, or edema. ASSESSMENT: 1. Ventral hernia. PLAN: 1. Recommend proceeding with robotic ventral hernia repair with mesh. 2. Benefits and risks of surgical intervention was discussed including possibility of open technique. 3. DVT prophylaxis. 4. Antibiotic prophylaxis. Past Medical History Past Medical History: No Reported History Additional Past Medical History / Comment(s): ENDOCRINE PANCREATIC INSUFFICIENCY- STATES IT CAUSES LOOSE STOOLS., ACNE, ABDOMINAL HERNIA, HAS NEXPLANON IMPLANT FOR CONTROL. History of Any Multi-Drug Resistant Organisms: None Reported Past Surgical History: Section, Cholecystectomy Additional Past Surgical History / Comment(s): Ganglion cyst removal; mole removal Past Anesthesia/Blood Transfusion Reactions: No Reported Reaction, Previous Problems w/ Anesthesia Additional Past Anesthesia/Blood Transfusion Reaction / Comment(s): STATES EPIDURAL AND SPINAL DID NOT WORK FOR . Past Psychological History: Anxiety, Bipolar Additional Psychological History / Comment(s): hx of suicide attempt in 2013 Smoking Status: Never smoker Past Alcohol Use History: Occasional Past Drug Use History: None Reported - Past Family History Sister(s) Family Medical History: Thyroid Disorder Medications and Allergies Home Medications Medication Instructions Recorded Confirmed Type Charcoal 260 mg PO BID 10/06/18 10/15/18 History busPIRone HCL 15 mg PO BID 10/06/18 10/15/18 History lamoTRIgine [LaMICtal] 200 mg PO DAILY 10/06/18 10/15/18 History Etonogestrel [Nexplanon] 1 implant SQ [id number] 10/12/18 10/15/18 History Allergies Allergy/AdvReac Type Severity Reaction Status Date / Time citalopram Allergy Dyspnea Verified 10/06/18 15:51 Surgical - Exam Vital Signs Temp Pulse Resp BP Pulse Ox 97 F L 95 16 124/70 97 10/15/18 09:42 10/15/18 09:42 10/15/18 09:42 10/15/18 09:42 10/15/18 09:42 Results - Labs 10/15/18 09:36 10/15/18 09:36 Abnormal Lab Results - Last 24 Hours (Table) 10/15/18 10/15/18 Range/Units 09:36 09:36 RDW 15.7 H (11.5-15.5) % Chloride 111 H (98-107) mmol/L Carbon Dioxide 21 L (22-30) mmol/L Glucose 104 H (74-99) mg/dL AST 77 H (14-36) U/L ALT 74 H (9-52) U/L Diabetes panel 10/15/18 Range/Units 09:36 Sodium 143 (137-145) mmol/L Potassium 4.3 (3.5-5.1) mmol/L Chloride 111 H (98-107) mmol/L Carbon Dioxide 21 L (22-30) mmol/L BUN 8 (7-17) mg/dL Creatinine 0.60 (0.52-1.04) mg/dL Glucose 104 H (74-99) mg/dL Calcium 9.2 (8.4-10.2) mg/dL AST 77 H (14-36) U/L ALT 74 H (9-52) U/L Alkaline Phosphatase 99 (38-126) U/L Total Protein 7.3 (6.3-8.2) g/dL Albumin 4.5 (3.5-5.0) g/dL Calcium panel 10/15/18 Range/Units 09:36 Calcium 9.2 (8.4-10.2) mg/dL Albumin 4.5 (3.5-5.0) g/dL Pituitary panel 10/15/18 Range/Units 09:36 Sodium 143 (137-145) mmol/L Potassium 4.3 (3.5-5.1) mmol/L Chloride 111 H (98-107) mmol/L Carbon Dioxide 21 L (22-30) mmol/L BUN 8 (7-17) mg/dL Creatinine 0.60 (0.52-1.04) mg/dL Glucose 104 H (74-99) mg/dL Calcium 9.2 (8.4-10.2) mg/dL Adrenal panel 10/15/18 Range/Units 09:36 Sodium 143 (137-145) mmol/L Potassium 4.3 (3.5-5.1) mmol/L Chloride 111 H (98-107) mmol/L Carbon Dioxide 21 L (22-30) mmol/L BUN 8 (7-17) mg/dL Creatinine 0.60 (0.52-1.04) mg/dL Glucose 104 H (74-99) mg/dL Calcium 9.2 (8.4-10.2) mg/dL Total Bilirubin 0.5 (0.2-1.3) mg/dL AST 77 H (14-36) U/L ALT 74 H (9-52) U/L Alkaline Phosphatase 99 (38-126) U/L Total Protein 7.3 (6.3-8.2) g/dL Albumin 4.5 (3.5-5.0) g/dL
--- NOTE | 2018-10-15 11:15 | P.ANPRN ---
Procedure Note - Anesthesia - Nerve Block Performed Bilateral Transversus Abdominis Single Time Out Performed: Yes Date of Procedure: 10/15/18 Procedure Start Time: 10:32 Procedure Stop Time: 10:39 Location of Patient Procedure: PreOp Indication: Acute Post-Operative Pain, Requested by physician Sedation Type: Sedate with meaningful contact maintained Preparation: Sterile Prep, Sterile Dressing Position: Supine Catheter: None Needle Types: Pajunk Needle Gauge: 20 Technique: Ultrasound Injectate: Other (see comment) (Ropivacaine 0.25% 25 ml per side)
[2018-10-15] MEDS ORDERED: ROPIVACAINE 5 MG/ML 30 ML VIAL ONE (11:41)
[2018-10-15] MEDS ORDERED: LIDOCAINE 1% INJ 10MG/ML (20 ML MDV) ONE (11:41)
[2018-10-15] MEDS ORDERED: fentaNYL (PF) 50 MCG/ML 2 ML AMP ONE (11:41)
[2018-10-15] MEDS ORDERED: PROPOFOL 10 MG/ML 20 ML VIAL IV ONE (11:41)
[2018-10-15] MEDS ORDERED: NEOSTIGMINE 1 MG/ML 10 ML VIAL ONE (11:41)
[2018-10-15] MEDS ORDERED: GLYCOPYRROLATE 0.2 MG/ML 2 ML VIAL ONE (11:41)
[2018-10-15] MEDS ORDERED: ROCURONIUM BROMIDE 10 MG/ML 10 ML VIAL IV ONE (11:41)
[2018-10-15] MEDS ORDERED: BUPIVACAIN-EPI 0.25%-1:200,000 30 ML VIAL SQ ONE ×2 (12:06→12:09)
[2018-10-15] MEDS ORDERED: KETOROLAC 30 MG/ML 1 ML VIAL IVP ONE (13:00)
[2018-10-15] MEDS: HYDROmorphone 0.5 MG/0.5 ML SYRINGE IVP PRN ×2 (13:06→13:11)
[2018-10-15] MEDS ORDERED: LACTATED RINGERS 1,000 ML IV ONE ×2 (13:18)
--- NOTE | 2018-10-15 13:25 | P.OP ---
Date of Procedure: 10/15/18 Description of Procedure: SURGEON: IMELDA ISABEL MD PREOPERATIVE DIAGNOSES: 1. Incarcerated incisional hernia, epigastrium, upper abdomen 2. Obesity, BMI 31.6 3. Bipolar disorder 4. Generalized anxiety disorder POSTOPERATIVE DIAGNOSES: 1. Incarcerated incisional hernia, epigastrium, upper abdomen, 4 cm 2. Obesity, BMI 31.6 3. Bipolar disorder 4. Generalized anxiety disorder OPERATION: 1. Robotic-assisted da Laura Xi laparoscopic repair of initial incarcerated incisional hernia 4-cm with mesh, ventralight ST mesh 11.4 cm ANESTHESIA: General with local ESTIMATED BLOOD LOSS: 5 mL. SPECIMENS: None COMPLICATIONS: None. INDICATIONS: The patient is a 28-year-old female who presents ventral hernia of the epigastrium, upper abdomen. Surgical intervention with laparoscopic versus robotic and open techniques were reviewed. Placement of mesh was also reviewed. Benefits and risks were thoroughly described. Informed consent was obtained. DESCRIPTION OF PROCEDURE: The patient was brought into the operating room and laid in supine position. After general induction, the abdomen had been prepped and draped in standard sterile fashion. Ioban draping was also placed. Prior to incision, a timeout protocol was confirmed with surgical team regarding the patient's name including procedures to be performed. The robot was primed prior to the procedure. A field block using local anesthetic was placed along hernia site including the proposed port sites. Initial incision was made with an #11 blade along the left upper quadrant. A 0 degree 5 mm laparoscopic trocar entry was performed and insufflated. A 12 mm port was placed along the right upper quadrant. The 5-mm port was exchanged for an 8 mm robotic port. total of 3 ports 8 mm replace along the left lateral abdominal wall. Placements of the ports were 15 cm from the target anatomy and 10 cm apart. The da Laura Xi robot was previously primed, prepped and draped then docked along the right side of the patient. I then sat at the robot Da Laura Xi console where working arms of the robot including Bovie cautery connected to robotic scissors, vessel sealer, needle road oiling truck driver, and graspers placed by the assistant professor of german. The falciform ligament was incarcerated in the incisional hernia defect of the epigastrium. Fascial defect of 3 cm of the upper midline was identified after cleaning the peritoneal fat of the abdominal wall and reducing an incarcerate falciform ligament. The 12 mm port was placed along the left upper quadrant for placement of the mesh and for sutures. The incarcerated contents was reduced as the peritoneal fat was cleaned from the abdominal wall. Next, hemostasis was checked with cautery. The hernia defect was oversewn using #1 Stratafix with fascial imbrication x 2. Next, ventralight ST mesh 11.4 cm was in quarter size with the rough side towards the abdominal wall. 2-0 VLOC sutures were used to fixate the mesh. A final endoscopic imaging was obtained. All instruments and pneumoperitoneum were evacuated from the abdominal cavity. The da Laura Xi robot was undocked from the patient. I re-scrubbed into the case for closure of incisions. The fascia of the 12-mm port was probed and less than 8-mm in size. The incisions were reapproximated using 4-0 Monocryl in an interrupted subcuticular fashion. Liquid glue was applied to the skin after cleansing the skin with normal saline and dilute hydrogen peroxide. An abdominal binder was placed. An umbilical dressing was placed prior. At the end of the procedure, needle, sponge, and instrument count had been verified correct by operating room surgical technician. The patient was taken to the postanesthesia care unit in stable condition. FINDINGS: 1. Initial incarcerated incisional epigastric, upper abdominal 4-cm hernia Plan - Discharge Summary Discharge Rx Participant: Yes New Discharge Prescriptions: New Ibuprofen [Motrin] 600 mg PO Q8HR PRN #30 tab PRN Reason: Pain Acetaminophen Tab [Tylenol Tab] 500 mg PO Q6H PRN #30 tablet PRN Reason: Pain HYDROcodone/APAP 5-325MG [Luxora 5-325] 1 tab PO Q6HR PRN 3 Days #10 tab PRN Reason: pain No Action lamoTRIgine [LaMICtal] 200 mg PO DAILY busPIRone HCL 15 mg PO BID Charcoal 260 mg PO BID Etonogestrel [Nexplanon] 1 implant SQ [id number] Discharge Medication List Charcoal 260 mg PO BID 10/06/18 [History] busPIRone HCL 15 mg PO BID 10/06/18 [History] lamoTRIgine [LaMICtal] 200 mg PO DAILY 10/06/18 [History] Etonogestrel [Nexplanon] 1 implant SQ [id number] 10/12/18 [History] Acetaminophen Tab [Tylenol Tab] 500 mg PO Q6H PRN #30 tablet 10/15/18 [Rx] HYDROcodone/APAP 5-325MG [Luxora 5-325] 1 tab PO Q6HR PRN 3 Days #10 tab 10/15/18 [Rx] Ibuprofen [Motrin] 600 mg PO Q8HR PRN #30 tab 10/15/18 [Rx] Follow up Appointment(s)/Referral(s): Imelda Isabel MD [STAFF PHYSICIAN] - 10/19/18 Patient Instructions/Handouts: Abdominal Binder (DC), Ventral Hernia (DC), Ventral Hernia Repair (GEN) Activity/Diet/Wound Care/Special Instructions: No lifting over 10 pounds 10 days, 10/25/2018. May shower. No bathtub soaks. Wear abdominal binder for comfort. Discharge Disposition: HOME SELF-CARE
[2018-10-15 14:08] VITALS: RESP 18
[2018-10-15 14:18] LABS: Glucose,Whole Blood 127 mg/dL (75-99)
[2018-10-15] MEDS ORDERED: HYDROcodone/APAP 5-325MG 1 EACH TAB PO ONE (14:25)
[2018-10-15 14:58] VITALS: BP 117/78; PULSE 83
== END 2018-10-15 15:09 | disposition home or self-care (01) ==
LOC: OR 09:09
PROVIDERS: ATTEND Surgery Plastic and Reconstructive Surgery
DX: K43.0 Incisional hernia with obstruction, without gangrene (principal); K86.89 Other specified diseases of pancreas; F31.9 Bipolar disorder, unspecified; F41.1 Generalized anxiety disorder; L70.9 Acne, unspecified; E66.9 Obesity, unspecified; Z68.31 Body mass index [BMI] 31.0-31.9, adult; Z79.3 Long term (current) use of hormonal contraceptives; Z79.899 Other long term (current) drug therapy; Z88.8 Allergy status to other drugs, medicaments and biological substances; Z91.5 Personal history of self-harm; Z90.49 Acquired absence of other specified parts of digestive tract; Z83.49 Family history of other endocrine, nutritional and metabolic diseases
CPT/HCPCS: 49655; S2900; 64488; 80053; 81025; 85025

== ENCOUNTER → 2018-11-26 | Outpatient (CLI) | payer BC, OTHER | END | disposition home or self-care (01) | LOC: RADMRIMAIN 19:22 | PROVIDERS: ATTEND Family Medicine | DX: Z53.9 Procedure and treatment not carried out, unspecified reason (principal) ==

== ENCOUNTER 2020-05-15 21:29 | Emergency (ER) | payer BC, OTHER ==
[2020-05-15 21:36] VITALS: BP 134/90; PULSE 88; RESP 16; TEMP 98.1
--- NOTE | 2020-05-15 23:03 | ED ---
Female Urogenital HPI - General Chief complaint: Urogenital Stated complaint: Genital Pain Time Seen by Provider: 05/15/20 22:14 Source: patient, RN notes reviewed, old records reviewed Mode of arrival: ambulatory Limitations: no limitations - History of Present Illness Initial comments: This is a 29-year-old female who is had some persistent issues with these infections vaginal infections urinary tract infections. Patient is followed up as an outpatient with her primary care with symptoms worsen. Patient has no other recent significant issues, no abdominal pain denies fever. Multiple treatments and her pain and symptoms persist. Denies any sexual changes or some new sexual partners. MD Complaint: dysuria -: minutes(s) Location: perineum Radiation: non-radiating Severity: moderate Severity scale (1-10): 4 Quality: sharp Consistency: constant Improves with: none Worsens with: none Last Menstrual Period: 04/29/19 Patient : No Associated Symptoms: denies other symptoms - Related Data Sexually active: No Home Medications Medication Instructions Recorded Confirmed Charcoal 260 mg PO BID 10/06/18 10/15/18 busPIRone HCL 15 mg PO BID 10/06/18 10/15/18 lamoTRIgine [LaMICtal] 200 mg PO DAILY 10/06/18 10/15/18 Etonogestrel [Nexplanon] 1 implant SQ [id number] 10/12/18 10/15/18 Previous Rx's Medication Instructions Recorded Acetaminophen Tab [Tylenol Tab] 500 mg PO Q6H PRN #30 tablet 10/15/18 HYDROcodone/APAP 5-325MG [Egan 1 tab PO Q6HR PRN 3 Days #10 tab 10/15/18 5-325] Ibuprofen [Motrin] 600 mg PO Q8HR PRN #30 tab 10/15/18 Clindamycin Topical Soln 1 applic TOPICAL BID #1 tube 05/15/20 [Cleocin-T Topical Soln] Doxycycline [Vibramycin] 100 mg PO BID 1 Days #10 capsule 05/15/20 Allergies Allergy/AdvReac Type Severity Reaction Status Date / Time citalopram Allergy Dyspnea Verified 05/15/20 21:36 Penicillins Allergy Unknown Verified 05/15/20 21:36 Review of Systems ROS Statement: Those systems with pertinent positive or pertinent negative responses have been documented in the HPI. ROS Other: All systems not noted in ROS Statement are negative. Past Medical History Past Medical History: Asthma Additional Past Medical History / Comment(s): ENDOCRINE PANCREATIC INSUFFICIENCY- STATES IT CAUSES LOOSE STOOLS., ACNE, ABDOMINAL HERNIA, HAS NEXPLANON IMPLANT FOR CONTROL., History of Any Multi-Drug Resistant Organisms: None Reported Past Surgical History: Section, Cholecystectomy Additional Past Surgical History / Comment(s): Ganglion cyst removal; mole removal, Past Anesthesia/Blood Transfusion Reactions: No Reported Reaction, Previous Problems w/ Anesthesia Additional Past Anesthesia/Blood Transfusion Reaction / Comment(s): STATES EPIDURAL AND SPINAL DID NOT WORK FOR . Past Psychological History: Anxiety, Bipolar Smoking Status: Current every day smoker Past Alcohol Use History: Occasional Past Drug Use History: None Reported - Past Family History Sister(s) Family Medical History: Thyroid Disorder General Exam Limitations: no limitations General appearance: alert, in no apparent distress Head exam: Present: atraumatic, normocephalic, normal inspection Eye exam: Present: normal appearance, PERRL, EOMI. Absent: scleral icterus, conjunctival injection, periorbital swelling ENT exam: Present: normal exam, mucous membranes moist Neck exam: Present: normal inspection. Absent: tenderness, meningismus, lymphadenopathy Respiratory exam: Present: normal lung sounds bilaterally. Absent: respiratory distress, wheezes, rales, rhonchi, stridor Cardiovascular Exam: Present: regular rate, normal rhythm, normal heart sounds. Absent: systolic murmur, diastolic murmur, rubs, gallop, clicks GI/Abdominal exam: Present: soft, normal bowel sounds. Absent: distended, tenderness, guarding, rebound, rigid External exam: Present: erythema, swelling, other (Patient does have significant erythema and lesions to her external vagina some excoriations which are now painful, no ulcers no vesicles) Extremities exam: Present: normal inspection, full ROM, normal capillary refill. Absent: tenderness, pedal edema, joint swelling, calf tenderness Back exam: Present: normal inspection Neurological exam: Present: alert, oriented X3, CN II-XII intact Psychiatric exam: Present: normal affect, normal mood Skin exam: Present: warm, dry, intact, normal color. Absent: rash Course Vital Signs 05/15/20 21:32 Temperature 98.1 F Pulse Rate 88 Respiratory 16 Rate Blood Pressure 134/90 O2 Sat by Pulse 98 Oximetry - Reevaluation(s) Reevaluation #1: Medical record is reviewed Patient does have mild improvement here in the emergency department Patient informed of results questions answered Patient feels good which is planning will continue follow-up with her OB Medical Decision Making - Medical Decision Making 29 female to the ER for evaluation. Patient has positive vaginitis will treat vaginitis and further culture testing. - Lab Data Lab Results 05/15/20 05/15/20 05/15/20 Range/Units 22:38 22:38 22:38 Urine Color Yellow Urine Appearance Cloudy H (Clear) Urine pH 8.0 (5.0-8.0) Ur Specific [place] 1.019 (1.001-1.035) Urine Protein Trace H (Negative) Urine Glucose (UA) Negative (Negative) Urine Ketones Negative (Negative) Urine Blood Negative (Negative) Urine Nitrite Negative (Negative) Urine Bilirubin Negative (Negative) Urine Urobilinogen 3.0 (<2.0) mg/dL Ur Leukocyte Esterase Negative (Negative) Urine WBC <1 (0-5) /hpf Ur Squamous Epith Cells 2 (0-4) /hpf Amorphous Sediment Rare H (None) /hpf Urine Bacteria Rare H (None) /hpf Urine Mucus Few H (None) /hpf Urine HCG, Qual Not Detected (Not Detectd) Chlamydia Source Urine Chlamydia DNA (PCR) Negative (Neg,Equiv) N. gonorrhoeae Source Urine N.gonorrhoeae DNA Probe Negative (Neg,Equiv) Disposition Clinical Impression: Vaginitis Disposition: HOME SELF-CARE Condition: Good Instructions (If sedation given, give patient instructions): Vaginitis (ED) Prescriptions: Clindamycin Topical Soln [Cleocin-T Topical Soln] 1 applic TOPICAL BID #1 tube Doxycycline [Vibramycin] 100 mg PO BID 1 Days #10 capsule Is patient prescribed a controlled substance at d/c from ED?: No Referrals: Harshal Laughlin MD [Primary Care Provider] - 1-2 days
[2020-05-15 23:05] LABS: Amorphous Sediment,Urine Rare /hpf; Appearance,Urine Cloudy (Clear); Bacteria,Urine Rare /hpf; Bilirubin,Urine Negative (Negative); Blood,Urine Negative (Negative); Color,Urine Yellow; Glucose,Urine (UA) Negative (Negative); Ketones,Urine Negative (Negative); Leukocyte Esterase,Urine Negative (Negative); Mucus,Urine Few /hpf; Nitrite,Urine Negative (Negative); Protein,Urine Trace (Negative); Specific Gravity,Urine 1.019 (1.001-1.035); Squamous Epithelial Cell,Urine 2 /hpf (0-4); WBC,Urine <1 /hpf (0-5)
[2020-05-15] MEDS ORDERED: metroNIDAZOLE 500 MG TAB PO STA (23:11)
[2020-05-15] MEDS ORDERED: FLUCONAZOLE 100 MG TAB PO ONE (23:11)
[2020-05-15] MEDS ORDERED: cefTRIAXone 250 MG VIAL IM STA (23:11)
[2020-05-15] MEDS ORDERED: AZITHROMYCIN 500 MG TAB PO STA (23:11)
[2020-05-15] MEDS ORDERED: IBUPROFEN 600 MG STARTER PACK 4 TAB BTL PO STA (23:12)
[2020-05-15] MEDS ORDERED: IBUPROFEN 800 MG TAB PO STA (23:12)
[2020-05-15] MEDS ORDERED: ACETAMINOPHEN TAB 500 MG TAB PO STA (23:12)
[2020-05-17 14:34] LABS: C. trachomatis,PCR Negative (Neg,Equiv); Chlamydia trachomatis Source Urine; N. gonorrhoeae,PCR Negative (Neg,Equiv); Neisseria Source Urine
== END 2020-05-15 23:50 | disposition home or self-care (01) ==
LOC: EC 21:29
DX: N76.0 Acute vaginitis (principal); J45.909 Unspecified asthma, uncomplicated; F41.9 Anxiety disorder, unspecified; F17.200 Nicotine dependence, unspecified, uncomplicated
CPT/HCPCS: 81001; 81025; 87491; 87591; 87070; 87205; 99283; 96372; J0696

== ENCOUNTER 2023-11-06 15:25 | Inpatient (IN) | payer MEDICAID, OTHER ==
--- NOTE | 2023-11-06 16:28 | ED ---
Psych HPI - General Source: patient, RN notes reviewed Mode of arrival: ambulatory <Cynthia Sandoval - Last Filed: 11/06/23 18:51> <Lia Skinner - Last Filed: 11/07/23 02:52> - General Chief Complaint: Psychiatric Symptoms Stated Complaint: mental health Time Seen by Provider: 11/06/23 16:26 - History of Present Illness Initial Comments: 33-year-old female history of ADHD, bipolar disorder, depression, and anxiety presenting for mental health evaluation. Patient states over the past 3 days she has felt "out of control". She is complaining of insomnia and behavioral range. States she has been taking all of her medications as directed. She met with her counselor at [facility] earlier today who advised her to come to the ER for evaluation. Denies homicidal ideation or suicidal ideation. No medical complaints at this time. (Cynthia Sandoval) - Related Data Home Medications Medication Instructions Recorded Confirmed Montelukast [Singulair] 10 mg PO DAILY 05/09/22 11/06/23 hydrOXYzine HCL [Atarax] 25 mg PO BID 05/09/22 11/06/23 traZODone HCL [Desyrel] 50 - 150 mg PO HS 05/09/22 11/06/23 Albuterol Nebulized [Ventolin 2.5 mg INHALATION RT-TID PRN 11/06/23 11/06/23 Nebulized] Albuterol Sulfate [Ventolin HFA] 2 puff INHALATION RT-Q4H PRN 11/06/23 11/06/23 Cariprazine HCl [Vraylar] 4.5 mg PO DAILY 11/06/23 11/06/23 Clindamycin Phosphate 1 applic TOPICAL HS 11/06/23 11/06/23 Clobetasol Propionate [Clobex 1 applic TOPICAL BID 11/06/23 11/06/23 0.05% Soln] Doxycycline Hyclate 50 mg PO BID 11/06/23 11/06/23 Drospirenon-Ethinyl Estradiol 1 tab PO DAILY 11/06/23 11/06/23 3-0.3mg Ketoconazole 2% Shampoo [Nizoral] 1 applic TOPICAL DIRECTED 11/06/23 11/06/23 Lisdexamfetamine Dimesylate 30 mg PO DAILY 11/06/23 11/06/23 [Vyvanse] PARoxetine HCL [Paxil] 10 mg PO DAILY 11/06/23 11/06/23 busPIRone HCL 15 mg PO BID 11/06/23 11/06/23 Allergies Allergy/AdvReac Type Severity Reaction Status Date / Time citalopram Allergy Dyspnea Verified 11/06/23 17:52 Milk Containing Products Allergy Unknown Verified 11/06/23 17:52 (Dairy) [Dairy] mold Allergy Unknown Verified 11/06/23 17:52 Penicillins Allergy Unknown Verified 11/06/23 17:52 Review of Systems ROS Other: All systems not noted in ROS Statement are negative. <Cynthia Sandoval - Last Filed: 11/06/23 18:51> ROS Other: All systems not noted in ROS Statement are negative. <Lia Skinner - Last Filed: 11/07/23 02:52> ROS Statement: Those systems with pertinent positive or pertinent negative responses have been documented in the HPI. Past Medical History Past Medical History: Asthma Additional Past Medical History / Comment(s): ENDOCRINE PANCREATIC INSUFFICIENCY- STATES IT CAUSES LOOSE STOOLS., ACNE, ABDOMINAL HERNIA, HAS NEXPLANON IMPLANT FOR CONTROL., History of Any Multi-Drug Resistant Organisms: None Reported Past Surgical History: Section, Cholecystectomy Additional Past Surgical History / Comment(s): Ganglion cyst removal; mole removal, Past Anesthesia/Blood Transfusion Reactions: No Reported Reaction, Previous Problems w/ Anesthesia Additional Past Anesthesia/Blood Transfusion Reaction / Comment(s): STATES EPIDURAL AND SPINAL DID NOT WORK FOR . Past Psychological History: Anxiety, Bipolar Smoking Status: Current every day smoker Past Alcohol Use History: Occasional Past Drug Use History: None Reported - Past Family History Sister(s) Family Medical History: Thyroid Disorder <Cynthia Sandoval - Last Filed: 11/06/23 18:51> General Exam Limitations: no limitations General appearance: alert, in no apparent distress Head exam: Present: atraumatic, normocephalic, normal inspection Eye exam: Present: normal appearance, PERRL. Absent: scleral icterus, conjunctival injection, periorbital swelling ENT exam: Present: normal exam Respiratory exam: Present: normal lung sounds bilaterally. Absent: respiratory distress, wheezes, rales, rhonchi, stridor Cardiovascular Exam: Present: regular rate, normal rhythm, normal heart sounds. Absent: systolic murmur, diastolic murmur, rubs, gallop, clicks Extremities exam: Present: normal inspection, full ROM, normal capillary refill. Absent: tenderness, pedal edema, joint swelling, calf tenderness Neurological exam: Present: alert, oriented X3 Psychiatric exam: Present: normal affect, normal mood Skin exam: Present: warm, dry, intact, normal color. Absent: rash <Cynthia Sandoval - Last Filed: 11/06/23 18:51> Course Vital Signs 11/06/23 11/07/23 15:41 02:32 Temperature 98.0 F 98.1 F Pulse Rate 112 H 73 Respiratory 18 18 Rate Blood Pressure 116/74 109/71 O2 Sat by Pulse 98 95 Oximetry Medical Decision Making <Cynthia Sandoval - Last Filed: 11/06/23 18:51> <Lia Skinner - Last Filed: 11/07/23 02:52> - Medical Decision Making Was pt. sent in by a medical professional or institution ([facility], MAILROOM SUPERVISOR, urgent care, hospital, or skilled nursing...) When possible be specific @ -Sent by [facility] for mental health evaluation Did you speak to anyone other than the patient for history (EMS, parent, family, police, friend...)? What history was obtained from this source @ -No Did you review nursing and triage notes (agree or disagree)? Why? @ -I reviewed and agree with nursing and triage notes Were old charts reviewed (outside hosp., previous admission, EMS record, old EKG, old radiological studies, urgent care reports/EKG's, skilled nursing records)? Report findings @ -No old charts were reviewed Differential Diagnosis (chest pain, altered mental status, abdominal pain women, abdominal pain men, vaginal bleeding, weakness, fever, dyspnea, syncope, headache, dizziness, GI bleed, back pain, seizure, CVA, palpatations, mental health, musculoskeletal)? @ -Differential Mental Health Depression, anxiety, bipolar, psychosis, schizophrenia, borderline personality, situational depression, adjustment disorder, behavioral disorder, brain tumor, malingering, substance abuse, encephalopathy, medication reaction, dementia, hypothyroidism, degenerative neurologic disorder, lupus.... This is not meant to be all-inclusive list EKG interpreted by me (3pts min.). @ -None X-rays interpreted by me (1pt min.). @ -None done CT interpreted by me (1pt min.). @ -None done U/S interpreted by me (1pt. min.). @ -None done What testing was considered but not performed or refused? (CT, X-rays, U/S, la bs)? Why? @ -None What meds were considered but not given or refused? Why? @ -None Did you discuss the management of the patient with other professionals (professionals i.e. , PA, MAILROOM SUPERVISOR, lab, RT, psych nurse, licensed clinical social worker, bicycle service technician, teacher, ground intelligence officer, medical case manager)? Give summary @ -No Was smoking cessation discussed for >3mins.? @ -No Was critical care preformed (if so, how long)? @ -No Were there social determinants of health that impacted care today? How? (Homelessness, low income, unemployed, alcoholism, drug addiction, transportation, low edu. Level, literacy, decrease access to med. care, prison, rehab)? @ -No Was there de-escalation of care discussed even if they declined (Discuss DNR or withdrawal of care, Hospice)? DNR status @ -No What co-morbidities impacted this encounter? (DM, HTN, Smoking, COPD, CAD, Cancer, CVA, ARF, Chemo, Hep., AIDS, mental health diagnosis, sleep apnea, morbid obesity)? @ -None Was patient admitted / discharged? Hospital course, mention meds given and route, prescriptions, significant lab abnormalities, going to OR and other pertinent info. @ -Patient was seen for mental health evaluation. Patient has a history of ADHD, bipolar disorder, depression, and anxiety. She states over the past 3 days, she has felt "out of control" with insomnia and behavioral range. Denies current SI or HI. Denies any medical complaints at this time. Patient was medically cleared for EPS evaluation. Case signed out to Lia Skinner PA-C pending EPS evaluation. (Cynthia Sandoval) EPS evaluated the patient and advised that she meets criteria for inpatient psychiatric hospitalization due to her behavior and concern for harming others. Patient will sign herself in on a voluntary basis. Case discussed with ED attending Dr. Blakely. (Lia Skinner) - Lab Data Lab Results 0811/06/23 11/06/23 Range/Units 16:40 16:40 20:05 POC Glucose (mg/dL) 100 (70-110) mg/dL POC Glu Open Developer Operator ID Fransico Sidhu Urine HCG, Qual Not Detected (Not Detectd) Urine Opiates Screen Not Detected (NotDetected) Ur Oxycodone Screen Not Detected (NotDetected) Urine Methadone Screen Not Detected (NotDetected) Ur Barbiturates Screen Not Detected (NotDetected) U Tricyclic Antidepress Not Detected (NotDetected) Ur Phencyclidine Scrn Not Detected (NotDetected) Ur Amphetamines Screen Detected H (NotDetected) U Methamphetamines Scrn Not Detected (NotDetected) U Benzodiazepines Scrn Not Detected (NotDetected) Urine Cocaine Screen Not Detected (NotDetected) U Marijuana (THC) Screen Not Detected (NotDetected) SARS-CoV-2 (PCR) (Not Detectd) 11/07/23 Range/Units 00:23 POC Glucose (mg/dL) (70-110) mg/dL POC Glu Open Developer Operator ID Urine HCG, Qual (Not Detectd) Urine Opiates Screen (NotDetected) Ur Oxycodone Screen (NotDetected) Urine Methadone Screen (NotDetected) Ur Barbiturates Screen (NotDetected) U Tricyclic Antidepress (NotDetected) Ur Phencyclidine Scrn (NotDetected) Ur Amphetamines Screen (NotDetected) U Methamphetamines Scrn (NotDetected) U Benzodiazepines Scrn (NotDetected) Urine Cocaine Screen (NotDetected) U Marijuana (THC) Screen (NotDetected) SARS-CoV-2 (PCR) Not Detected (Not Detectd) Disposition <Cynthia Sandoval - Last Filed: 11/06/23 18:51> <Lia Skinner - Last Filed: 11/07/23 02:52> Clinical Impression: Potential for harm to others, Difficulty controlling anger Disposition: TRANSFER TO PSYCH HOSP/UNIT
[2023-11-06 17:03] LABS: Amphetamine Screen,Urine Detected (NotDetected); Barbiturate Screen,Urine Not Detected (NotDetected); Benzodiazepines Screen,Urine Not Detected (NotDetected); Cocaine Screen,Urine Not Detected (NotDetected); Methadone Screen, Urine Not Detected (NotDetected); Opiate Screen,Urine Not Detected (NotDetected); Oxycodone Screen, Urine Not Detected (NotDetected); Phencyclidine Screen,Urine Not Detected (NotDetected); Tricyclic Antidepressant,Urine Not Detected (NotDetected); Urn Cannabinoid Scrn Not Detected (NotDetected)
[2023-11-06 20:07] LABS: Glucose,Whole Blood 100 mg/dL (70-110)
[2023-11-07] MEDS ORDERED: IBUPROFEN 600 MG TAB PO PRN (02:21)
[2023-11-07] MEDS ORDERED: HALOPERIDOL LACTATE 5 MG/ML 1 ML VIAL IM PRN (02:21)
[2023-11-07] MEDS ORDERED: haloperidoL 5 MG TAB PO PRN (02:21)
[2023-11-07] MEDS ORDERED: LORazepam 2 MG/ML INJ IM PRN (02:21)
[2023-11-07] MEDS ORDERED: MAGNESIUM HYDROXIDE 2,400 MG/30 ML CUP PO PRN (02:21)
[2023-11-07] MEDS ORDERED: MAG HYDROX/AL HYDROX/SIMETH 355 ML BOTTLE PO PRN (02:21)
[2023-11-07 02:42] LABS: Amorphous Sediment,Urine Rare /hpf; Appearance,Urine Cloudy (Clear); Bacteria,Urine Rare /hpf; Bilirubin,Urine Negative (Negative); Blood,Urine Negative (Negative); Color,Urine Yellow; Glucose,Urine (UA) Negative (Negative); Ketones,Urine Negative (Negative); Leukocyte Esterase,Urine Negative (Negative); Mucus,Urine Few /hpf; Nitrite,Urine Negative (Negative); PH, Urine 7.5 (5.0-8.0); Protein,Urine Trace (Negative); RBC,Urine 1 /hpf (0-5); Specific Gravity,Urine 1.023 (1.001-1.035); Squamous Epithelial Cell,Urine 26 /hpf (0-4); WBC,Urine 2 /hpf (0-5)
[2023-11-07] MEDS: traZODone HCL 50 MG TAB PO PRN (03:51)
[2023-11-07 07:55] LABS: Basophils % (A) 1 %; Eosinophils # (A) 0.1 k/uL (0-0.7); Eosinophils % (A) 1 %; HCT 39.1 % (34.0-46.0); HGB 13.1 gm/dL (11.4-16.0); Lymphocytes # (A) 1.4 k/uL (1.0-4.8); Lymphocytes % (A) 28 %; MCH 29.4 pg (25.0-35.0); MCHC 33.6 g/dL (31.0-37.0); MCV 87.6 fL (80.0-100.0); Mean Platelet Volume 6.7; Monocytes # (A) 0.3 k/uL (0-1.0); Monocytes % (A) 5 %; Neutrophils # (A) 3.4 k/uL (1.3-7.7); Neutrophils % (A) 65 %; Platelet Count 334 k/uL (150-450); RBC 4.46 m/uL (3.80-5.40); RDW 14.6 % (11.5-15.5); WBC 5.2 k/uL (3.8-10.6)
[2023-11-07 08:17] LABS: ALT 80 U/L (4-34); AST 54 U/L (14-36); African American GFR (CKD) >90 (>60 ml/min/1.73 sqM); Alkaline Phosphatase 103 U/L (38-126); Anion Gap 6 mmol/L; Bilirubin, Delta 0.3 mg/dL (0.0-0.2); Bilirubin,Unconjugated 0.8 mg/dL (0.0-1.1); Blood Urea Nitrogen 6 mg/dL (7-17); Carbon Dioxide 21 mmol/L (22-30); Chloride 111 mmol/L (98-107); Glucose 91 mg/dL (74-99); Non-African American GFR(CKD) >90 (>60 ml/min/1.73 sqM); Potassium 4.6 mmol/L (3.5-5.1); Sodium 138 mmol/L (137-145); Total Bilirubin 1.1 mg/dL (0.2-1.3); Total Protein 6.4 g/dL (6.3-8.2)
[2023-11-07] MEDS: DOXYCYCLINE 50 MG CAP PO SCH (10:41)
[2023-11-07] MEDS: CLOBETASOL PROP 0.05% CR 15GM TOPICAL SCH (10:41)
[2023-11-07] MEDS: KETOCONAZOLE 2% SHAMPOO 1 APPLIC/ML TOPICAL SCH (10:42)
[2023-11-07] MEDS: hydrOXYzine HCL 25 MG TAB PO SCH (10:48)
[2023-11-07] MEDS: busPIRone HCl 5 MG TAB PO SCH ×2 (10:48→15:38)
[2023-11-07] MEDS: PARoxetine 10 MG TAB PO SCH (10:52)
[2023-11-07 13:33] LABS: Chol/HDL Ratio 3.69 Ratio; LDL Cholesterol,Calculated 112.4 mg/dL (0.0-131.0)
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
[2023-11-07] MEDS: traZODone HCL 50 MG TAB PO SCH (20:36)
[2023-11-07] MEDS: MONTELUKAST 10 MG TAB PO SCH (20:36)
[2023-11-08] MEDS: ALBUTEROL INHALER 60 PUFF/8 GM INHALER (MHU) INHALATION PRN (17:32)
--- NOTE | 2023-11-08 18:48 | P.PN ---
Progress Note - Text Progress Note Date: 11/08/23 Interval history: Patient was seen hallway was amenable to a visit in the office. He described her mood as "good" today. She rates her level of rage as a 0 out of 10 which is an improvement from when she came to the hospital. She notices that situations that would have provoked her to anger or action that have been occurring on the unit are not causing the same reaction. She is able to redirect and move around when other patients may be doing things that she finds irritating. She has been sleeping okay. She has been talking to her family which has been reassuring. She notes that her anxiety level is stable. She is not experiencing any depressive symptoms at this time. She does think now that the debility she noticed was due to impact of the oral contraceptive. At this time patient denies any suicidal or homicidal ideation, intent, or plan. Denies any auditory or visual hallucinations. Patient denies any side effects from the medications and has been compliant with meds. Mental status exam: General Appearance: Patient appears to be stated age is alert, directable, and cooperative. Behavior: No agitated behavior. Patient is calm and directable Speech: Patient's speech is fluent and nonpressured. Mood/Affect: Mood is "good", affect is congruent and constricted. Euthymic. Suicidality/Homicidality: Patient denies having any suicidal or homicidal ideation intent or plan. Perceptions: Patient denies any auditory or visual hallucinations. Though content/process: There is no evidence of any delusional thought content and thought process is linear and goal-directed. Memory and concentration: AOX3, grossly intact for the purposes of this session Judgment and insight: Reasonable, improving. Assessment/Plan: -Patient has had a significant decrease in rage since admission. It seems most likely that the acute increase in irritability and anger she experienced prior to admission may have been secondary to initiation of a new oral contraceptive. Since that medications been discontinued she has found it easier to regulate her emotions and has not experienced the symptoms that prompted her to come to the hospital. -Continue management of current diagnoses: ADHD, Unspecified mood disorder, nicotine dependence -Patient is admitted under voluntary status to [facility] for stabilization of psychiatric symptoms and safety. Patient has signed adult voluntary form and medication consent and is placed in patient's chart. -Medications : - Continue Vraylar 4.5 mg daily - Continue Vyvanse 30 mg daily (consistent with [facility] refill history) - Continue Paxil 10 mg daily - Continue Buspirone 15 mg BID - Continue Hydroxyzine 25 mg BID - Continue Trazodone 150 mg QHS -Ativan and Haldol PRN for agitation/aggression -NRT -nicotine patch -SW to be engaged for discharge planning. Encourage patient to participate in groups to work on coping skills.
[2023-11-09] MEDS: ACETAMINOPHEN TAB 325 MG TAB PO PRN (08:43)
--- NOTE | 2023-11-09 11:53 | P.PN ---
Progress Note - Text Progress Note Date: 11/09/23 Interval history: Patient was seen hallway and was agreeable to speak with newspaper writer in the office. She states she is feeling quite a bit better, and has not had any rage issues since stopping her control medication. She states she does not have any anxiety at this time, and her mood has been pretty good. She is endorsing good sleep and appetite. claims that it was hard to control herself and was scared about being around her son at home. At this time patient denies any suicidal or homicidal ideation, intent, or plan. Denies any auditory or visual hallucinations. Patient denies any side effects from the medications and has been compliant with meds. Mental status exam: General Appearance: Patient appears to be stated age is alert, directable, and cooperative. Behavior: No agitated behavior. Patient is calm and directable Speech: Patient's speech is fluent and nonpressured. Mood/Affect: Mood is "good", affect is congruent and constricted. Euthymic. Suicidality/Homicidality: Patient denies having any suicidal or homicidal ideation intent or plan. Perceptions: Patient denies any auditory or visual hallucinations. Though content/process: There is no evidence of any delusional thought content and thought process is linear and goal-directed. Memory and concentration: AOX3, grossly intact for the purposes of this session Judgment and insight: improving. Assessment: Bipolar disorder ADHD nicotine dependence Plan -Patient is admitted under voluntary status to [facility] for stabilization of psychiatric symptoms and safety. Patient has signed adult voluntary form and medication consent and is placed in patient's chart. -Medications : - Continue Vraylar 4.5 mg daily - Continue Vyvanse 30 mg daily (consistent with [facility] refill history) - Continue Paxil 10 mg daily - Continue Buspirone 15 mg BID - Continue Hydroxyzine 25 mg BID - Continue Trazodone 150 mg QHS -Ativan and Haldol PRN for agitation/aggression -NRT -nicotine patch -SW to be engaged for discharge planning. Encourage patient to participate in groups to work on coping skills. Discharge in 1-2 days if patient continues to improve.
[2023-11-09 17:28] LABS: Glucose,Whole Blood 94 mg/dL (70-110)
[2023-11-10 07:15] VITALS: RESP 14
--- NOTE | 2023-11-10 11:22 | P.PN ---
Progress Note - Text Progress Note Date: 11/10/23 Interval history: Patient was seen hallway and was agreeable to speak with commercial real estate underwriter in the office. She states she is pretty good today. She is endorsing good sleep and appetite. She feels her mood has stabilized quite well, and she is not feeling any rage at this time. She is participating in groups on the unit, and being social with peers. At this time patient denies any suicidal or homicidal ideation, intent, or plan. Denies any auditory or visual hallucinations. Patient denies any side effects from the medications and has been compliant with meds. Mental status exam: General Appearance: Patient appears to be stated age is alert, directable, and cooperative. Behavior: No agitated behavior. Patient is calm and directable Speech: Patient's speech is fluent and nonpressured. Mood/Affect: Mood is "good", affect is congruent and constricted. Suicidality/Homicidality: Patient denies having any suicidal or homicidal ideation intent or plan. Perceptions: Patient denies any auditory or visual hallucinations. Though content/process: There is no evidence of any delusional thought content and thought process is linear and goal-directed Memory and concentration: AOX3, grossly intact for the purposes of this session Judgment and insight: improving Assessment: Bipolar disorder ADHD nicotine dependence Plan -Patient is admitted under voluntary status to [facility] for stabilization of psychiatric symptoms and safety. Patient has signed adult voluntary form and medication consent and is placed in patient's chart. -Medications : - Continue Vraylar 4.5 mg daily - Continue Vyvanse 30 mg daily (consistent with [facility] refill history) - Continue Paxil 10 mg daily - Continue Buspirone 15 mg BID - Continue Hydroxyzine 25 mg BID - Continue Trazodone 150 mg QHS -Ativan and Haldol PRN for agitation/aggression -NRT -nicotine patch -SW to be engaged for discharge planning. Encourage patient to participate in groups to work on coping skills. Discharge tomorrow if patient continues to improve.
[2023-11-10] MEDS: LORazepam 1 MG TAB PO PRN (13:37)
--- NOTE | 2023-11-10 17:25 | P.HPMEDMHU ---
History of Present Illness H&P Date: 11/10/23 Patient is a 33-year-old female with a past medical history of cystic acne, asthma, ADHD, bipolar who is admitted to the psychiatric unit. Medicine consulted for medical H&P. Patient states that her asthma is under control. Patient states that she sees a loom fixer helper for her cystic acne. She states that she is on doxycycline for it. She otherwise denies any acute complaints. ROS: 10 ROS reviewed and are negative except as noted in HPI Physical exam General: [Alert and oriented, well nourished, no acute distress]. Eye: [PERRL, EOMI, normal conjunctiva]. HENT: [Normocephalic, clear tympanic membranes, normal hearing, moist oral mucosa, no scleral icterus, no sinus tenderness]. Neck: [Supple, non-tender, no carotid bruits, no JVD, no lymphadenopathy]. Lungs: [Clear to auscultation and percussion, non-labored respiration]. Heart: [Normal rate, regular rhythm, no murmur, gallop or edema]. Abdomen: [Soft, non-tender, non-distended, normal bowel sounds, no masses]. Musculoskeletal: [Normal range of motion and strength, no tenderness or swelling]. Skin: [Skin is warm, dry and pink, no rashes or lesions]. Neurologic: [Awake, alert, and oriented X3, CN II-XII intact]. Psychiatric: [Cooperative, appropriate mood and affect]. Assessment and plan Asthma Stable Continue with inhalers Cystic acne Continue with doxycycline and patient to follow-up with her loom fixer helper Psychiatric disorder As per your psychiatric management Please do not hesitate to call sound physicians for any questions or concerns Past Medical History Past Medical History: Asthma Additional Past Medical History / Comment(s): ENDOCRINE PANCREATIC INSUFFICIENCY- STATES IT CAUSES LOOSE STOOLS., ACNE, ABDOMINAL HERNIA, HAS NEXPLANON IMPLANT FOR CONTROL., History of Any Multi-Drug Resistant Organisms: None Reported Past Surgical History: Section, Cholecystectomy, Hernia Repair Additional Past Surgical History / Comment(s): Ganglion cyst removal; mole removal, Past Anesthesia/Blood Transfusion Reactions: Previous Problems w/ Anesthesia Additional Past Anesthesia/Blood Transfusion Reaction / Comment(s): STATES EPIDURAL AND SPINAL DID NOT WORK FOR . Smoking Status: Never smoker - Past Family History Sister(s) Family Medical History: Thyroid Disorder Medications and Allergies Home Medications Medication Instructions Recorded Confirmed Type Montelukast [Singulair] 10 mg PO DAILY 05/09/22 11/06/23 History hydrOXYzine HCL [Atarax] 25 mg PO BID 05/09/22 11/06/23 History traZODone HCL [Desyrel] 50 - 150 mg PO HS 05/09/22 11/06/23 History Albuterol Nebulized [Ventolin 2.5 mg INHALATION RT-TID PRN 11/06/23 11/06/23 History Nebulized] Albuterol Sulfate [Ventolin HFA] 2 puff INHALATION RT-Q4H PRN 11/06/23 11/06/23 History Cariprazine HCl [Vraylar] 4.5 mg PO DAILY 11/06/23 11/06/23 History Clindamycin Phosphate 1 applic TOPICAL HS 11/06/23 11/06/23 History Clobetasol Propionate [Clobex 1 applic TOPICAL BID 11/06/23 11/06/23 History 0.05% Soln] Doxycycline Hyclate 50 mg PO BID 11/06/23 11/06/23 History Drospirenon-Ethinyl Estradiol 1 tab PO DAILY 11/06/23 11/06/23 History 3-0.3mg Ketoconazole 2% Shampoo [Nizoral] 1 applic TOPICAL DIRECTED 11/06/23 11/06/23 History Lisdexamfetamine Dimesylate 30 mg PO DAILY 11/06/23 11/06/23 History [Vyvanse] PARoxetine HCL [Paxil] 10 mg PO DAILY 11/06/23 11/06/23 History busPIRone HCL 15 mg PO BID 11/06/23 11/06/23 History Allergies Allergy/AdvReac Type Severity Reaction Status Date / Time citalopram Allergy Dyspnea Verified 11/06/23 17:52 Milk Containing Products Allergy Unknown Verified 11/06/23 17:52 (Dairy) [Dairy] mold Allergy Unknown Verified 11/06/23 17:52 Penicillins Allergy Unknown Verified 11/06/23 17:52 Physical Exam Osteopathic Statement: *. No significant issues noted on an osteopathic structural exam other than those noted in the History and Physical/Consult. Vitals: Vital Signs Temp Pulse Resp BP Pulse Ox 11/10/23 06:24 97.1 F L 67 14 101/68 100 Cranial Nerve Examination - Cranial Nerves Cranial Nerve I- Olfactory: Intact Cranial Nerve II- Optic: Intact Cranial Nerve III- Oculomotor: Intact Cranial Nerve IV- Trochlear: Intact Cranial Nerve V- Trigeminal: Intact Cranial Nerve - Abducens: Intact Cranial Nerve VII- Facial: Intact Cranial Nerve VIII- Auditory: Intact Cranial Nerve IX- Glossopharyngeal: Intact Cranial Nerve X- Vagus: Intact Cranial Nerve XI- Accessory: Intact Cranial Nerve XII- Hypoglossal: Intact Results CBC & Chem 7: 11/07/23 07:30 11/07/23 07:30 Thrombosis Risk Factor Assmnt - Choose All That Apply Any of the Below Risk Factors Present?: Yes Each Factor Represents 1 point: Obesity (BMI >25), Oral contraceptives or hormone replacement therapy Other Risk Factors: No Other congenital or acquired thrombophilia - If yes, enter type in comment: No Thrombosis Risk Factor Assessment Total Risk Factor Score: 2 Thrombosis Risk Factor Assessment Level: Low Risk
[2023-11-11 07:10] VITALS: BP 101/67; PULSE 70; TEMP 97.4
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
== END 2023-11-11 13:58 | disposition home or self-care (01) | DRG 753 ==
LOC: EC 15:25 → 3MHU 11-07 02:09
PROVIDERS: ADMIT Psychiatry & Neurology Psychiatry; ATTEND Psychiatry & Neurology Psychiatry
DX: F31.9 Bipolar disorder, unspecified (principal); F90.9 Attention-deficit hyperactivity disorder, unspecified type; F17.200 Nicotine dependence, unspecified, uncomplicated; F41.9 Anxiety disorder, unspecified; G47.00 Insomnia, unspecified; J45.909 Unspecified asthma, uncomplicated; Z28.21 Immunization not carried out because of patient refusal; Z91.51 Personal history of suicidal behavior; Z79.899 Other long term (current) drug therapy; Z62.810 Personal history of physical and sexual abuse in childhood; Z88.0 Allergy status to penicillin; Z88.8 Allergy status to other drugs, medicaments and biological substances; Z91.011 Allergy to milk products; Z11.52 Encounter for screening for COVID-19
CPT/HCPCS: 36415; 80053; 80061; 80306; 81001; 81025; 82075; 82248; 83036; 84443; 85025; 87635; 87636; 99285